=== PATIENT | female | born 1965 | race Caucasian/White ===

== ENCOUNTER 2018-07-16 11:17 | Emergency (ER) | payer MEDICAID, SELFPAY ==
[2018-07-16 11:19] VITALS: BP 155/72; PULSE 61; RESP 18; TEMP 36.6; O2SAT 98; BMI 38.0
--- NOTE | 2018-07-16 11:32 | RAD_ITS ---
STUDY: X-RAY - LEFT KNEE REASON FOR EXAM: Female, 53 years old. Pain following a recent fall TECHNIQUE: 4 view(s) of the knee. COMPARISON: None. FINDINGS: Normal visualized distal femur. Normal visualized proximal tibia and fibula. Normal proximal tibiofibular articulation. Normal medial femorotibial compartment. Normal lateral femorotibial compartment. Normal patellofemoral articulation. The soft tissue structures are unremarkable. RAD/Knee 4 or More Views IMPRESSION: Normal x-ray examination of the knee. Electronically Signed: Mike Peace, at 12:52 EDT , Service support ,
--- NOTE | 2018-07-16 11:32 | ED.VISSUMM ---
- ER Visit Summary Date of Service: 07/16/18 Chief Complaint: Bilateral knee pain History of Present Illness: The patient is a [address] Conley and Dr. Bay. She reports that she was walking through a parking lot last night and tripped over a cement barrier. She injured both knees. She reports that she has left knee pain that is 10 out of 10 with moving from a sitting to a standing position or walking. It is 6 out of 10 at rest. She has right knee pain that is 3 out of 10 at rest and 6 out of 10 with moving from a sitting to standing position. This knee does not hurt worse with walking. She denies any other injuries. No blow to the head or loss of consciousness. She is on any blood thinners. Physical Examination: Vitals: Stable. Afebrile. Neck: No vertebral tenderness. Full ROM without difficulty. Cleared by NEXUS criteria. Back: No vertebral tenderness. General: A&O x 3. NAD. Cardiovascular exam: Regular rate and rhythm, no murmur, rub or gallop. Respiratory exam: Chest nontender. No crepitus. Clear to auscultation bilaterally. No wheezes or stridor. Abdominal exam: Soft, nontender, nondistended, normal bowel sounds. No pain in RUQ or LUQ specifically. No peritoneal signs. Extremity: Full range of motion of both knees with minimal pain. No appreciable joint effusion. She has no pain or ligamentous instability with anterior/posterior drawer or medial/lateral stress bilaterally. Negative Haley on the right. She does have a positive Haley on the left with her foot rotated laterally. She is neurovascular intact distal to this. Test Results: X-ray showed no acute disease. Emergency Department Course and Treatment: Patient refused pain medications. She is resting comfortably. Treatment Plan: I discussed the patient that she may have damaged the meniscus. She will be discharged with instructions Tylenol/ibuprofen for pain. Ice the area. Follow-up Dr. Bay within 3-5 days if not improving. Return to the emergency department for any worsening symptoms. Disposition: To home in improved and stable condition. Impression: 1. Bilateral knee pain, acute. This note was generated with [employer] software. It may contain incorrect words, spelling, and punctuation that were not noted in review of the chart prior to signing ED Disposition - Plan for ED Patient: Instructions: ED Knee Pain [facility] Referrals: Arden Bay MD [STAFF PHYSICIAN] - 3-5 Days
--- NOTE | 2018-07-16 11:53 | RAD_ITS ---
STUDY: X-RAY - RIGHT KNEE REASON FOR EXAM: Female, 53 years old. Bilateral knee pain following a fall. TECHNIQUE: 4 view(s) of the knee. COMPARISON: None. FINDINGS: Normal visualized distal femur. Normal visualized proximal tibia and fibula. Normal proximal tibiofibular articulation. Normal medial femorotibial compartment. Normal lateral femorotibial compartment. Normal patellofemoral articulation. The soft tissue structures are unremarkable. RAD/Knee 4 or More Views IMPRESSION: Normal x-ray examination of the knee. Electronically Signed: Mike Peace, at 12:52 EDT , Service support ,
== END 2018-07-16 12:21 | disposition home or self-care (01) ==
LOC: ED 11:42
PROVIDERS: Emergency Provider Emergency Medicine; Family Provider Family Medicine; PCP Family Medicine
DX: M25.561 Pain in right knee (principal); M25.562 Pain in left knee; Z72.0 Tobacco use
CPT/HCPCS: 73564; 99282

== ENCOUNTER 2018-11-30 07:34 | Observation (INO) | payer SELFPAY ==
[2018-11-30] VITALS (8 sets, daily range): BP systolic 137–155; BP diastolic 65–78; PULSE 56–69; RESP 12–18; TEMP 36.8–36.9; O2SAT 98–100; BMI 35.8; BMI 35.4; BMI 35.5
--- NOTE | 2018-11-30 07:48 | EKG12_ITS ---
Test Reason : CP Blood Pressure : / mmHG Vent. Rate : 068 BPM Atrial Rate : 068 BPM P-R Int : 164 ms QRS Dur : 072 ms QT Int : 386 ms P-R-T Axes : 047 014 048 degrees QTc Int : 410 ms Sinus rhythm with Premature atrial complexes with Aberrant conduction Otherwise normal ECG Confirmed by MONE PROCTOR, GREG ([id number]), fan mail editor JOSE RICH ([id number]) on 12/03/2018 12:00:00 PM Referred By: BB Confirmed By:GREG SHORE MD
--- NOTE | 2018-11-30 07:48 | RAD_ITS ---
STUDY: X-RAY CHEST REASON FOR EXAM: Female, 53 years old. Chest pain. TECHNIQUE: Single AP portable view of the chest. COMPARISON: December 21, 2016. FINDINGS: Cardiac silhouette unremarkable. Pulmonary vascularity unremarkable. Aorta unremarkable. No focal patchy airspace opacities. No pleural effusions. Upper abdomen unremarkable. Osseous structures intact. No pneumothorax. RAD/Chest 1 View (Portable) IMPRESSION: No acute cardiopulmonary findings Electronically Signed: Sanford Hope DO at 8:18 EDT Tel , Service support ,
--- NOTE | 2018-11-30 07:49 | ED.DCSUM_ITS ---
History of Present Illness Chief Complaint: Chest Pain Informant: Patient Onset: Days Context: Sudden Onset Timing: Intermittent Quality: Discomfort Location: Mid to left chest Current Severity: Mild Maximum Severity: Severe Worsened by: Exertion Relieved by: Nothing Associated Symptoms: Awakened from sleep, diaphoresis, shortness of breath, nausea Narrative: Patient is a 53-year-old woman who has smoked since age of 17 presents because she had worsening chest discomfort this morning and did not feel comfortable going to work. She reports Monday morning at 0400 she was awakened from sleep with chest discomfort went through to her back and shortness of breath. This lasted for some time. She was not able to be more specific. She reports over the past 2 days when at work with activity she becomes diaphoretic and at times discomfort in her chest worsens. At times the chest discomfort associated with nausea and dyspnea as well. She denies history of PE or DVT. She denies any risk factors. She denies leg pain, swelling discoloration. She denies history of heartburn, GERD or hiatal hernia. She denies black or maroon stool. She states she has taken a lot of Tylenol with minimal effect. She denies any URI symptoms. She denies prior chest pain. Patient states her 's concern this is related to her vaping. Prior similar symptoms: No Recent Illness/Hospitalization: No - Past Medical History (1) Anxiety disorder Status: Chronic Past Medical History - Allergies and Home Meds Allergies/Adverse Reactions: Allergies carbidopa [From Sinemet] Allergy (Verified 11/30/18 07:35) Swelling levodopa [From Sinemet] Allergy (Verified 11/30/18 07:35) Swelling Primary Care Physician: Delfin Conley MD [Primary Care Provider] - Past Medical History: None Surgical History: noncontributory, - - Patient is a colonoscopy tubal ligation Lives: Spouse/ Significant Other Smoking Status: Current every day smoker Alcohol: None Drugs: - - Old records there is a history of illicit drug use - Family History Paternal Family History: Reports: Heart Disease Review of Systems General: Denies: Chills, Fever, Sweats Eyes: Denies: Visual changes - bilaterally, Blurred Vision - bilaterally, Diplopia ENT: Denies: Rhinorrhea, Sore throat Cardiovascular: Reports: Chest pain Respiratory: Reports: Dyspnea, Dyspnea on exertion, Paroxysmal nocturnal dyspnea Gastrointestinal: Denies: Abdominal pain, Nausea, Vomiting, Diarrhea, Melena, Hematochezia Genitourinary: Denies: Dysuria, Hematuria, Frequency Musculoskeletal: Reports: Back pain - Evening/morning she was awakened from sleep. Denies: Myalgias, Arthralgias, Neck pain, Extremity Pain Skin: Denies: Rash, Wounds Neurological: Denies: Headache, Weakness, Numbness Psych: Reports: Anxiety Hematologic: Denies: Easy bruising, Easy bleeding Allergy: Denies: Uticaria, Swelling of the mouth Physical Exam Vital Signs/Narrative: Vital Signs Temp Pulse Resp BP Pulse Ox 11/30/18 07:35 98.4 F 65 17 138/78 H 98 Inital Vital Signs reviewed: Yes General: Well nourished, Well developed, Obese, No Acute Distress Head: Normocephalic, Atraumatic Eyes: Perrl, EOMI. Negative for: Pale conjunctiva, Scleral icterus ENT: Moist mucous membranes, No rhinorrhea Neck: Supple, Nontender, No lymphadenopathy, No JVD Cardiovascular: Regular rate, Regular rhythm, No murmurs, Normal S1, Normal S2 Respiratory: No distress, CTA bilaterally, Chest nontender Abdomen: Soft, Nontender, Nondistended, Normal bowel sounds Back: Nontender, Normal Inspection Extremities: Nontender, No edema Skin: Normal color, No rash, No Trauma. Negative for: Cyanosis, Diaphoresis, Jaundice Neurological: Alert, Oriented x3, Cranial nerves II-XII grossly intact, Normal Strength, Normal Sensation, Normal DTR, Normal Gait Psychological: Normal affect, Normal Mood Diagnostic/Tx/Re-eval Chest X-Ray - ED: 1 View, Read by ED Physician, Unchanged, Normal, Heart, Mediastinum, Bony Structures, No Acute Disease, Chronic Changes, - - Interpreted at 0759 Impressions Chest X-Ray 11/30/18 07:48 IMPRESSION: No acute cardiopulmonary findings Electronically Signed: Sanford Hope DO at 8:18 EDT Tel , Service support , 11/30/18 07:48 Chest 1 View (Portable) [RAD] Stat Laboratory Results 11/30/18 11/30/18 07:50 07:50 WBC 7.6 RBC 4.61 Hgb 11.2 L Hct 36.1 L MCV 78.3 L MCH 24.3 L MCHC 31.0 L RDW Std Deviation 41.8 RDW Coeff of Arnoldo 14.7 H Plt Count 336 MPV 10.1 Immature Gran % (Auto) 0.300 Neut % (Auto) 67.3 Lymph % (Auto) 24.6 [place] % (Auto) 5.4 Eos % (Auto) 2.0 Baso % (Auto) 0.4 Absolute Neuts (auto) 5.1 Absolute Lymphs (auto) 1.88 Nucleated RBC % 0 Sodium 140 Potassium 3.4 L Chloride 106 Carbon Dioxide 27.0 Anion Gap 7 BUN 10 Creatinine 0.73 Estim Creat Clear Calc 91.97 Est GFR (MDRD) Af Amer 107 Est GFR (MDRD) Non-Af 89 BUN/Creatinine Ratio 13.6 Glucose 119 H Calcium 8.8 Troponin I < 0.015 Laboratory results are remarkable for mild anemia with hemoglobin 11.2. Otherwise laboratory results are unremarkable. - Rhythm Strip Rhythm Strip: Sinus Rhythm Rate: 70 Ectopy: PVC(s) - EKG Initial EKG Interpretation: Sinus Rhythm - Ventricular rate is 68. NV interval is 104 ms. QS duration 72 ms. QT duration 386 ms. [place] is normal. There are premature wide-complex beats noted. These most likely represent a variant atrial complexes. - Medical Decision Making Patient's risk factors for coronary disease or smoking stage XV, borderline hypertension and borderline hypercholesterolemia. With history of awakening from sleep and diaphoresis with exertion and exacerbation of the chest pain with exertion at times need to evaluate for cardiac disease. Also need to consider noncardiac i.e. GI, pulmonary aortic pathology since she initially reported pain going through to her back. To evaluate her presentation EKG, chest x-ray and blood work was obtained. She was treated with 4 baby aspirin and nitroglycerin since she is still having mild discomfort. Patient was reassessed at 0825. Her pain is essentially gone after nitroglycerin. Heart score is 4. She received a point for moderate suspicion, age and 2 points for risk factors. Heart score total is 4. Heart score 4 symptoms are concerning alleviated with nitroglycerin hospitalist was paged for further testing. ED Disposition - Plan for ED Patient: Disposition: Acute Care Hospital [facility] Diagnosis: Chest discomfort Referrals: Delfin Conley MD [Primary Care Provider] -
[2018-11-30] MEDS: Aspirin 81 MG TAB.CHEW 324 MG PO (07:56)
[2018-11-30] MEDS: Nitroglycerin SL (ED/IMG/CATH) 0.4 MG TABLET SUBLINGUAL ×2 (07:58→08:03)
[2018-11-30 08:03] LABS: Absolute Lymphocyte Count 1.88 X10^3/uL (0.83-4.51); Absolute Neutrophil Count 5.1 X10^3/uL (2.0-7.7); Basophil# 0.03 X10^3/uL; Basophil% 0.4 % (0-1); Eosinophil# 0.15 X10^3/uL; Hematocrit 36.1 % (37-47); Hemoglobin 11.2 g/dL (12.0-15.0); Lymphocyte # 1.88 X10^3/ul (4.0); Lymphocyte % 24.6 % (19-41); Mean Corpuscular Hgb 24.3 pg (27.0-32.0); Mean Corpuscular Volume 78.3 fL (81-99); Mean Platelet Vol. 10.1 fl (6.2-12.0); Monocyte# 0.41 X10^3/uL; Monocyte% 5.4 % (0-10); NRBC Flagged by Analyzer 0 % (0-5); Neutrophil # 5.14 X10^3/uL (2.7-7.7); Neutrophil % 67.3 % (47-70); POSITIVE MORPHOLOGY YES; Platelet Count 336 K/mm3 (150-450); RBC Distribution Width CV 14.7 % (11.6-14.6); RBC Distribution Width SD 41.8 fl (35.1-43.9); Red Blood Count 4.61 M/mm3 (4.2-5.4); White Blood Count 7.6 K/mm3 (4.4-11.0)
[2018-11-30 08:05] LABS: Differential Indicated SCAN CRITERIA MET
[2018-11-30 08:14] LABS: Anion Gap 7 (5-15); BUN 10 mg/dL (7-18); BUN/Creat Ratio 13.6 RATIO (10-20); Calcium,Total 8.8 mg/dL (8.5-10.1); Chloride 106 mmol/L (98-107); Creatinine, Serum 0.73 mg/dL (0.55-1.02); EST Glomerular Filtration Rate 89 mL/min (>60); Est Glom Filt Rate - Afr Amer 107 mL/min (>60); Estimated Creatinine Clearance 91.97 ml/min; Glucose 119 mg/dL (74-106); Potassium 3.4 mmol/L (3.5-5.1); Sodium Level 140 mmol/L (136-145)
--- NOTE | 2018-11-30 09:25 | EKG12_ITS ---
Test Reason : Blood Pressure : / mmHG Vent. Rate : 053 BPM Atrial Rate : 053 BPM P-R Int : 186 ms QRS Dur : 086 ms QT Int : 434 ms P-R-T Axes : 052 019 049 degrees QTc Int : 407 ms Sinus bradycardia Otherwise normal ECG Confirmed by ROBERTO PROCTOR, BRAD ([id number]), assignment desk editor ADRIANNA ROMAN ([id number]) on 12/07/2018 8:20:13 AM Referred By: PRIMO Confirmed By:BRAD MEJIA MD
--- NOTE | 2018-11-30 10:29 | PCM.HP.STD ---
Problem List (1) Chest discomfort Status: Acute History of Present Illness Date of Admission: 11/30/18 Chief Complaint: Chest pain The patient is a 53 year old F with no significant past medical history presents with chest pain. She states that it started on Monday or Monday of this week and initially started in her back and she thought that it was a muscle spasm. She took some Flexeril which did not help, and the pain moved into the front. Initially lasted for about an hour and then resolved. She has noticed that over the last 2 days her pain would become more intense with exercise and be relieved with rest. She denies any cough or pleuritic type chest pain. Her pain is situated over the left side of her chest. She denies any lightheadedness or dizziness. No shortness of breath. In the ER and initial troponin was negative and the EKG was unremarkable. In the ER her chest pain did essentially resolved with nitroglycerin. Past Medical History Past Medical History (Chronic Problems): Chronic Problems Drug abuse (Chronic) Anxiety disorder (Chronic) Allergies carbidopa [From Sinemet] Allergy (Verified 11/30/18 07:35) Swelling levodopa [From Sinemet] Allergy (Verified 11/30/18 07:35) Swelling Home Medications: Ambulatory Orders Medication Instructions Recorded NK 11/30/18 Surgical History: noncontributory, - - Patient is a colonoscopy tubal ligation Psychiatric History: Anxiety [employer] History: No pertinent [employer] history Lives: Spouse/ Significant Other Smoking Status: Current every day smoker Tobacco Use: Cigarettes, Vapor Alcohol: None Drugs: - - Old records there is a history of illicit drug use - *Family History Paternal History Items: Heart Disease, Stroke Maternal History Items: Heart Disease, Stroke Sibling History Items: Heart Disease Review of Systems Constitutional: Denies: Chills, Fever, Weight Change HEENT: Denies: Head Aches, Sinus Congestion, Sinus Drainage Cardiovascular: Reports: Chest Pain. Denies: Palpitations Respiratory: Denies: Cough, Hemoptysis, Pleuritic Pain, Shortness of Breath, Shortness of breath at rest, Shortness of breath upon exertion, Sputum production Gastrointestinal: Denies: Abdominal Pain, Nausea, Vomiting Genitourinary: Denies: Dysuria Musculoskeletal: Denies: Joint Pain, Joint Tenderness Skin: Denies: Rash, Wounds Neurological: Denies: Numbness, Tingling, Focal weakness Psychiatric: Denies: Anxiety, Depression Hematologic/ Lymphatic: Denies: Easy Bruising, Easy Bleeding VTE Information - Inpt Only VTE Present on Admission: No Patient Problems: Active and Suspected Problems Chest discomfort (Acute) - Physical Exam General: Alert, Oriented x3, Cooperative, No apparent distress HEENT: Atraumatic, PERRLA, EOMI, Normocephalic Oral: Moist Mucosa Neck: Supple, No JVD Lungs: Clear to auscultation, Normal air movement, No rhonchi, No wheeze, No rales Cardiovascular: Regular rate, Regular Rhythm, Normal S1, Normal S2, No murmurs Abdomen: Soft, Non Tender, Non-Distended, No Hepato-splenomegaly Extremities: No edema, Capillary Refill Less than 3 Seconds Skin: No rashes, No breakdown Neurological: Neuro grossly intact, Sensory exam intact to light touch and pain Psych/Mental Status: Normal Affect, Appropriate Vital Signs Temp Pulse Resp BP Pulse Ox 98.2 F 60 18 155/65 H 100 11/30/18 09:38 11/30/18 09:39 11/30/18 09:38 11/30/18 09:38 11/30/18 09:38 Oxygen Flow Rate (L/min) 2 Oxygen Delivery Method Room Air Weight: 233 lb 3.985 oz Body Mass Index (BMI) 35.4 Laboratory Tests Past 24 Hrs 11/30/18 11/30/18 07:50 07:50 WBC 7.6 RBC 4.61 Hgb 11.2 L Hct 36.1 L MCV 78.3 L MCH 24.3 L MCHC 31.0 L RDW Std Deviation 41.8 RDW Coeff of Arnoldo 14.7 H Plt Count 336 MPV 10.1 Immature Gran % (Auto) 0.300 Neut % (Auto) 67.3 Lymph % (Auto) 24.6 [place] % (Auto) 5.4 Eos % (Auto) 2.0 Baso % (Auto) 0.4 Absolute Neuts (auto) 5.1 Absolute Lymphs (auto) 1.88 Nucleated RBC % 0 Sodium 140 Potassium 3.4 L Chloride 106 Carbon Dioxide 27.0 Anion Gap 7 BUN 10 Creatinine 0.73 Estim Creat Clear Calc 91.97 Est GFR (MDRD) Af Amer 107 Est GFR (MDRD) Non-Af 89 BUN/Creatinine Ratio 13.6 Glucose 119 H Calcium 8.8 Troponin I < 0.015 Assessment/Plan All Active Problems Chest discomfort (Acute) Arm contusion (Acute) 1. Chest pain/obesity/tobacco abuse -She is obese with a BMI of 35 and a smoker as well as a significant family history. -Initial troponin was negative will obtain troponin series -Proceed with a nuclear exercise stress today if possible otherwise tomorrow -We will obtain lipid panel and A1c as she states that she is inconsistent in following up with her doctor. -She states that she was recently checked for hypertension and was told that she did not have an issue with her and therefore was not started on any medications by her PCP -Discussed what lifestyle modifications including including strategies for weight loss -Advised cessation of tobacco products and vaping DVT: Lovenox Code Visit OBSV E&M: 21661 Initial observation care L2
[2018-11-30 11:03] LABS: Cholesterol 173 mg/dL (200); High Density Lipoprotein 52 mg/dL; Triglycerides 133 mg/dL; Very Low Density Lipoprotein 27 mg/dL (5-40)
[2018-11-30 11:05] LABS: Hemoglobin A1c 5.6 % (4.2-6.3)
--- NOTE | 2018-11-30 12:54 | CASEMGMT ---
Social Work Met with pt in room to discuss insurance as pt is listed as self pay. Pt stating that she previously had [facility] Medicaid and does work around 35 hours a week. Pt recently has had a lot of overtime at work and therefore no longer qualified for medicaid and lost insurance. Pt currently back down to 35 hours a week and has reapplied for [facility] Medicaid last week and expects to get insurance again. Pt stating she will be able to afford medications and follow up appointments until insurance starts again. Pt expressing no financial needs. EMILE Donnelly
--- NOTE | 2018-11-30 14:08 | STRESSREP_ITS ---
Stress Test Report Exercise myocardial perfusion stress test. 53-year-old lady with a history of chest pain. Stress protocol: Resting EKG demonstrates normal sinus rhythm with a rate of 61 bpm normal intervals are noted resting blood pressure 160/88 mmHg. The patient exercised according to regular Cody protocol for a total duration of 3 minutes and 20 s econds. The maximum heart rate attained was 166 bpm which was 98% of maximum predicted heart rate the maximum workload was 4.9 metabolic equivalents. At rest there were no ST or T wave changes noted suggest ischemia occasional premature ventricular complexes were noted at peak exercise upsloping ST changes only were noted with no meet the criteria for ischemia. The resting blood pressures 160/88 with a peak blood pressure of 204/60 mmHg. The test was terminated due to shortness of breath. Myocardial perfusion protocol. 14.6 mCi of technetium 99m sestamibi was injected at rest. The patient exercised according to regular Cody protocol for 3 minutes and 20 seconds at peak exercise 44.7 mCi of technetium 99m sestamibi was injected stress images were obtained stress and rest images were reconstructed in comparing the short axis vertical long horizontal on the gated images were also obtained for next Perfusion SPECT analysis: Review of the stress images demonstrate normal uptake of tracer noted in all areas of the myocardium. The resting images similarly demonstrate normal uptake of tracer noted in all rest myocardium. No areas of reversibility are noted suggest ischemia no previous infarct is noted. Gated SPECT analysis: The gated ejection fraction is noted to be 72%. Conclusion: Normal exercise myocardial perfusion stress test at a low workload. The low workload may affect sensitivity for detection of ischemia. No obvious ischemia noted. Shortness of breath present.
--- NOTE | 2018-11-30 14:48 | CT_ITS ---
STUDY: CTA CHEST REASON FOR EXAM: Female, 53 years old. SOB RADIATION DOSAGE (If Supplied By Facility): CTDIvol = ( 14.75 ) mGy, DLP = ( 516.97 ) mGycm TECHNIQUE: The examination was performed with the intravenous administration of 100cc IV Isovue 370. Post-processing of the angiographic images was performed, with multiplanar reformation and 3D reconstruction. Individualized dose optimization techniques were used for this CT. COMPARISON: None. FINDINGS: The contrast bolus is suboptimal for detecting small or distal pulmonary emboli. No large or central pulmonary emboli are seen. . Normal thoracic aorta and visualized great vessels. There is no demonstrated aortic dissection. Normal heart and pericardium. Normal mediastinum. Normal hilar regions. Normal visualized trachea and bronchi. The lungs are well expanded. Normal pulmonary parenchyma. Normal pleura. Normal chest wall structures. Normal osseous structures. Normal visualized upper abdomen. CT/CTA Chest W/WO Contrast IMPRESSION: The contrast bolus is suboptimal for detecting small or distal pulmonary emboli. No large or central pulmonary emboli are seen. No acute pulmonary findings. Electronically Signed: Delfin Zapata MD at 16:09 EDT Tel , Service support ,
--- NOTE | 2018-11-30 16:26 | DCINST_ITS ---
- Discharge Diagnoses Current Active Problems: Current Active and Chronic Problems Chest discomfort (Acute) You will use the following diet at home:: Calorie/Carbohydrate Controlled (specify 1200, 1400, etc) - 1400 Your food should be the consistency of: Regular Your liquids should be the consistency of: Regular/Thin Discharge Activity: Return to Normal Activity Call your doctor if you observe: Fever of 101 or Higher, Shortness of breath, Dizziness, Fainting spells, Swelling in the ankles, Chest pain, Increased palpitations (irregular heartbeat) Allergies/Adverse Reactions: Allergies carbidopa [From Sinemet] Allergy (Verified 11/30/18 07:35) Swelling levodopa [From Sinemet] Allergy (Verified 11/30/18 07:35) Swelling Medications to take at Discharge NK 11/30/18 Primary Care Physician: Delfin Conley MD [Primary Care Provider] - Please follow up with your Primary Care Physician in: 3-5 days Test Results: Test results from this visit will be discussed in further detail at your follow- up appointment, if applicable.
--- NOTE | 2018-11-30 16:28 | PCM.DC.SUM ---
Discharge Date and Diagnosis - Problem List Patient Problems: Active and Suspected Problems Chest discomfort (Acute) Date of Admission: 11/30/18 Date of Discharge: 11/30/18 - Primary Discharge Diagnosis Active and Suspected Problems Chest discomfort (Acute) - Secondary Discharge Diagnosis Chronic Problems Drug abuse (Chronic) Anxiety disorder (Chronic) Hospital Course and Treatment Imaging Results: CXR: IMPRESSION: No acute cardiopulmonary findings Stress Test: Exercise myocardial perfusion stress test. 53-year-old lady with a history of chest pain. Stress protocol: Resting EKG demonstrates normal sinus rhythm with a rate of 61 bpm normal intervals are noted resting blood pressure 160/88 mmHg. The patient exercised according to regular Cody protocol for a total duration of 3 minutes and 20 seconds. The maximum heart rate attained was 166 bpm which was 98% of maximum predicted heart rate the maximum workload was 4.9 metabolic equivalents. At rest there were no ST or T wave changes noted suggest ischemia occasional premature ventricular complexes were noted at peak exercise upsloping ST changes only were noted with no meet the criteria for ischemia. The resting blood pressures 160/88 with a peak blood pressure of 204/60 mmHg. The test was terminated due to shortness of breath. Myocardial perfusion protocol. 14.6 mCi of technetium 99m sestamibi was injected at rest. The patient exercised according to regular Cody protocol for 3 minutes and 20 seconds at peak exercise 44.7 mCi of technetium 99m sestamibi was injected stress images were obtained stress and rest images were reconstructed in comparing the short axis vertical long horizontal on the gated images were also obtained for next Perfusion SPECT analysis: Review of the stress images demonstrate normal uptake of tracer noted in all areas of the myocardium. The resting images similarly demonstrate normal uptake of tracer noted in all rest myocardium. No areas of reversibility are noted suggest ischemia no previous infarct is noted. Gated SPECT analysis: The gated ejection fraction is noted to be 72%. Conclusion: Normal exercise myocardial perfusion stress test at a low workload. The low workload may affect sensitivity for detection of ischemia. No obvious ischemia noted. Shortness of breath present. CTA Chest: IMPRESSION: The contrast bolus is suboptimal for detecting small or distal pulmonary emboli. No large or central pulmonary emboli are seen. No acute pulmonary findings. Consults: None Operations: None Procedures: Nuclear stress test Summary of Care Provided: Per HPI: The patient is a 53 year old F with no significant past medical history presents with chest pain. She states that it started on Monday or Monday of this week and initially started in her back and she thought that it was a muscle spasm. She took some Flexeril which did not help, and the pain moved into the front. Initially lasted for about an hour and then resolved. She has noticed that over the last 2 days her pain would become more intense with exercise and be relieved with rest. She denies any cough or pleuritic type chest pain. Her pain is situated over the left side of her chest. She denies any lightheadedness or dizziness. No shortness of breath. In the ER and initial troponin was negative and the EKG was unremarkable. In the ER her chest pain did essentially resolved with nitroglycerin. Hospital Course: 1. Chest pain/obesity/tobacco [id number]-32-cotn-old female presented to the hospital with chest pain for the last several days. She states it started in her back and radiated to her front. Initially she thought it might of been a muscle spasm she took a half of her 's Flexeril. That did not help. Today she had an EKG in the ER which was unremarkable and had 3 normal troponins. She was admitted for a stress test which was done and normal however even though she reached 98% of her maximum heart rate, it was at a low workload which does affect sensitivity and specificity of the test. However she is stating that her chest pain has resolved though she was having shortness of breath during the test. Because of his continued shortness of breath a CTA of the chest was obtained to rule out a PE, she was a very low pretest probability and CTA of the chest was negative for PE. Also, screening labs were obtained as she is inconsistent with seeing her primary care physician, her A1c was 5.6 and her lipid panel was normal. I did discuss with her the necessity of lifestyle modification as well as tobacco cessation. She expressed understanding. I discussed with her the risks and benefits of going home and she would like to go home so she does not want to miss work tomorrow. She understands she should come back if she has worsening chest pain or shortness of breath. Patient Problems: Active and Suspected Problems Chest discomfort (Acute) - Physical Exam Vital Signs Temp Pulse Resp BP Pulse Ox 98.5 F 69 18 137/66 H 99 11/30/18 15:53 11/30/18 15:53 11/30/18 15:53 11/30/18 15:53 11/30/18 15:53 Oxygen Flow Rate (L/min) 2 Oxygen Delivery Method Room Air Weight: 233 lb 3.985 oz Body Mass Index (BMI) 35.4 Laboratory Tests Past 24 Hrs 11/30/18 11/30/18 11/30/18 07:50 07:50 07:50 WBC 7.6 RBC 4.61 Hgb 11.2 L Hct 36.1 L MCV 78.3 L MCH 24.3 L MCHC 31.0 L RDW Std Deviation 41.8 RDW Coeff of Arnoldo 14.7 H Plt Count 336 MPV 10.1 Immature Gran % (Auto) 0.300 Neut % (Auto) 67.3 Lymph % (Auto) 24.6 [place] % (Auto) 5.4 Eos % (Auto) 2.0 Baso % (Auto) 0.4 Absolute Neuts (auto) 5.1 Absolute Lymphs (auto) 1.88 Nucleated RBC % 0 Sodium 140 Potassium 3.4 L Chloride 106 Carbon Dioxide 27.0 Anion Gap 7 BUN 10 Creatinine 0.73 Estim Creat Clear Calc 91.97 Est GFR (MDRD) Af Amer 107 Est GFR (MDRD) Non-Af 89 BUN/Creatinine Ratio 13.6 Glucose 119 H Hemoglobin A1c Calcium 8.8 Troponin I < 0.015 Triglycerides 133 Cholesterol 173 LDL Cholesterol 94 VLDL Cholesterol 27 HDL Cholesterol 52 11/30/18 11/30/18 11/30/18 07:50 10:50 14:15 WBC RBC Hgb Hct MCV MCH MCHC RDW Std Deviation RDW Coeff of Arnoldo Plt Count MPV Immature Gran % (Auto) Neut % (Auto) Lymph % (Auto) [place] % (Auto) Eos % (Auto) Baso % (Auto) Absolute Neuts (auto) Absolute Lymphs (auto) Nucleated RBC % Sodium Potassium Chloride Carbon Dioxide Anion Gap BUN Creatinine Estim Creat Clear Calc Est GFR (MDRD) Af Amer Est GFR (MDRD) Non-Af BUN/Creatinine Ratio Glucose Hemoglobin A1c 5.6 Calcium Troponin I < 0.015 < 0.015 Triglycerides Cholesterol LDL Cholesterol VLDL Cholesterol HDL Cholesterol Discharge Activity: Return to Normal Activity Call your doctor if you observe: Fever of 101 or Higher, Shortness of breath, Dizziness, Fainting spells, Swelling in the ankles, Chest pain, Increased palpitations (irregular heartbeat) Home Medications: Medications to take at Discharge NK 11/30/18 Primary Care Physician: Delfin Conley MD [Primary Care Provider] - Please follow up with your Primary Care Physician in: 3-5 days Disposition: Home Minutes spent on discharge:: 35 Patient Condition:: Stable Medical Necessity - Tobacco Use Smoking Status: Current every day smoker Tobacco Use: Cigarettes, Vapor Meaningful Use Info Meaningful Use Diagnoses (Choose all that apply): None applicable Code Visit OBSV E&M: 30523 Observ/hosp same date L2
== END 2018-11-30 16:49 | disposition home or self-care (01) ==
LOC: ED 08:27 → PCU 08:52
PROVIDERS: Admitting Provider Family Medicine; Emergency Provider Emergency Medicine; Family Provider Family Medicine; PCP Family Medicine; Visit Provider Family Medicine
DX: R07.89 Other chest pain (principal); R06.02 Shortness of breath; R03.0 Elevated blood-pressure reading, without diagnosis of hypertension; F17.210 Nicotine dependence, cigarettes, uncomplicated; F17.290 Nicotine dependence, other tobacco product, uncomplicated; E66.9 Obesity, unspecified; Z68.35 Body mass index [BMI] 35.0-35.9, adult; Z71.3 Dietary counseling and surveillance
CPT/HCPCS: 36415; 71045; 71275; 78452; 80048; 80061; 83036; 84484; 85025; 93005; 93017; 99218; 99285; 99406; A9500; Q9967; A4216; G0378

== ENCOUNTER 2019-06-07 08:06 | Emergency (ER) | payer OTHER, SELFPAY ==
[2018-11-30 09:21] VITALS: BMI 35.4
[2019-06-07 08:07] VITALS: BP 153/79; PULSE 73; RESP 17; TEMP 37.5; O2SAT 100; BMI 34.0
--- NOTE | 2019-06-07 08:18 | ED.DCSUM_ITS ---
History of Present Illness Chief Complaint: Cough Detail of Chief Complaint: Cough, fever Informant: Patient Onset: Weeks Context: Gradual Onset Timing: Waxes and wanes Current Severity: Moderate Maximum Severity: Moderate Narrative: Patient presents with 3 weeks of fever and cough. 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 Symptoms initially improved but have worsened again recently. She complains of cough with intermittent wheezing. She reports low-grade fevers. She was seen at urgent care 2 days ago and started on steroids along with Ceftin ear. Patient reports no improvement. She also raises concern about difficulty with urination. She states that she has problems with urinary continence at baseline. For the past 2 days she is only passed urine when she coughs. She does not feel that her bladder is full and she is unable to urinate however. - Past Medical History (1) Anxiety disorder Status: Chronic Past Medical History - Allergies and Home Meds Allergies/Adverse Reactions: Allergies carbidopa [From Sinemet] Allergy (Verified 06/07/19 08:07) Swelling levodopa [From Sinemet] Allergy (Verified 06/07/19 08:07) Swelling Primary Care Physician: Care Physician,No Primary [Primary Care Provider] - Prior records reviewed: Yes Surgical History: noncontributory, - - Patient is a colonoscopy tubal ligation Lives: Spouse/ Significant Other Smoking Status: Current every day smoker - Family History Maternal Family History: Reports: Heart Disease, Stroke Sibling Family History: Reports: Heart Disease Paternal Family History: Reports: Heart Disease, Stroke Review of Systems General: Reports: Fever Eyes: Denies: Visual changes - bilaterally ENT: Denies: Bilateral ear pain Cardiovascular: Reports: Palpitations. Denies: Chest pain Respiratory: Reports: Dyspnea, Cough Gastrointestinal: Denies: Abdominal pain, Nausea, Vomiting, Diarrhea Genitourinary: Denies: Dysuria Musculoskeletal: Denies: Swelling, Extremity Pain Skin: Denies: Rash Neurological: Denies: Headache Hematologic: Denies: Easy bruising, Easy bleeding Allergy: Denies: Uticaria Physical Exam Vital Signs/Narrative: Vital Signs Temp Pulse Resp BP Pulse Ox 06/07/19 08:07 99.5 F H 73 17 153/79 H 100 Inital Vital Signs reviewed: Yes General: Well nourished, Well developed Head: Normocephalic ENT: Moist mucous membranes Neck: Supple Cardiovascular: Regular rate, Regular rhythm Respiratory: No distress, CTA bilaterally Abdomen: Soft, Nontender Back: - - Mild tenderness in the bilateral lower lumbar paraspinal muscles. Extremities: Nontender Skin: Normal color, No rash Neurological: Alert, Oriented x3 Psychological: Normal affect Diagnostic/Tx/Re-eval Impressions Chest X-Ray 06/07/19 09:09 IMPRESSION: Normal PA and lateral chest Electronically Signed: Myke Hayes, at 9:23 EST Tel , Service support , 06/07/19 09:09 Chest PA and Lateral [RAD] Stat Laboratory Results 06/07/19 06/07/19 06/07/19 08:35 08:35 11:03 WBC 9.7 RBC 4.76 Hgb 11.6 L Hct 36.8 L MCV 77.3 L MCH 24.4 L MCHC 31.5 L RDW Std Deviation 44.1 H RDW Coeff of Arnoldo 15.8 H Plt Count 355 MPV 9.6 Immature Gran % (Auto) 0.200 Neut % (Auto) 66.7 Lymph % (Auto) 25.9 [place] % (Auto) 6.5 Eos % (Auto) 0.4 Baso % (Auto) 0.3 Absolute Neuts (auto) 6.5 Absolute Lymphs (auto) 2.52 Nucleated RBC % 0 Sodium 141 Potassium 3.0 L Chloride 109 H Carbon Dioxide 25.0 Anion Gap 7 BUN 11 Creatinine 0.77 Estim Creat Clear Calc 87.19 Est GFR (MDRD) Af Amer 101 Est GFR (MDRD) Non-Af 84 BUN/Creatinine Ratio 14.3 Glucose 98 Calcium 8.9 Urine Color Yellow Urine Clarity Clear Urine pH 6.0 Ur Specific [place] 1.015 Urine Protein Negative Urine Glucose (UA) Normal Urine Ketones Negative Urine Occult Blood 10 H Urine Nitrite Negative Urine Bilirubin Negative Urine Urobilinogen Normal Ur Leukocyte Esterase Negative Urine RBC 0 SEEN Urine WBC 0 SEEN Ur Squamous Epith Cells 5-10 SEEN Urine Bacteria RARE Urine Mucus 2+ - Medical Decision Making Patient was given fluids and ibuprofen here. She was given a DuoNeb treatment and does feel improved following this. On repeat evaluation she is resting comfortably. She was given oral potassium replacement. I discussed with the patient I believe her symptoms are viral in nature. She is already on an antibiotic and can continue this since she already started it. She will be given an albuterol inhaler for home. ED Disposition - Plan for ED Patient: Disposition: Home or Assisted Living Diagnosis: Bronchitis Instructions: BRONCHITIS with Wheezing (Adult) Prescriptions: Albuterol Inhaler [Ventolin Hfa] 1 - 2 puff INHALATION Q4H PRN PRN #1 inhaler PRN Reason: Wheezing Transmission Status: Pending to [id number] - [place] Referrals: Jayro Moraes III, MD [STAFF PHYSICIAN] - 1-2 Weeks
[2019-06-07] MEDS: 0.9% Normal Saline 1,000 ML 150 ML IV (08:33)
[2019-06-07] MEDS: Ibuprofen 600 MG Tablet PO (08:43)
[2019-06-07 08:44] LABS: Absolute Lymphocyte Count 2.52 X10^3/uL (0.83-4.51); Absolute Neutrophil Count 6.5 X10^3/uL (2.0-7.7); Basophil# 0.03 X10^3/uL; Basophil% 0.3 % (0-1); Eosinophil# 0.04 X10^3/uL; Eosinophils% 0.4 % (0-5); Hematocrit 36.8 % (37-47); Hemoglobin 11.6 g/dL (12.0-15.0); Lymphocyte # 2.52 X10^3/ul (4.0); Lymphocyte % 25.9 % (19-41); Mean Corp Hgb Conc 31.5 g/dL (32-36); Mean Corpuscular Hgb 24.4 pg (27.0-32.0); Mean Corpuscular Volume 77.3 fL (81-99); Mean Platelet Vol. 9.6 fl (6.2-12.0); Monocyte# 0.63 X10^3/uL; Monocyte% 6.5 % (0-10); NRBC Flagged by Analyzer 0 % (0-5); Neutrophil # 6.48 X10^3/uL (2.7-7.7); Neutrophil % 66.7 % (47-70); Platelet Count 355 K/mm3 (150-450); RBC Distribution Width CV 15.8 % (11.6-14.6); RBC Distribution Width SD 44.1 fl (35.1-43.9); Red Blood Count 4.76 M/mm3 (4.2-5.4); White Blood Count 9.7 K/mm3 (4.4-11.0)
[2019-06-07 08:47] VITALS: BP 144/63; PULSE 68; RESP 14; O2SAT 100
[2019-06-07 09:07] LABS: Anion Gap 7 (5-15); BUN 11 mg/dL (7-18); BUN/Creat Ratio 14.3 RATIO (10-20); Calcium,Total 8.9 mg/dL (8.5-10.1); Chloride 109 mmol/L (98-107); Creatinine, Serum 0.77 mg/dL (0.55-1.02); EST Glomerular Filtration Rate 84 mL/min (>60); Est Glom Filt Rate - Afr Amer 101 mL/min (>60); Estimated Creatinine Clearance 87.19 ml/min; Glucose 98 mg/dL (74-106); Sodium Level 141 mmol/L (136-145)
--- NOTE | 2019-06-07 09:09 | RAD_ITS ---
EXAM DESCRIPTION: PA and lateral chest CLINICAL HISTORY: 53 years Female, cough, SOB, chest pains, and off and on fever for approx 3 weeks cough, SOB, chest pains, and off and on fever for approx 3 weeks COMPARISON: Previous is obtained on 11/30/2018 FINDINGS: The thorax is intact. The heart and mediastinum appear to be within normal limits. The lungs appear to be well areated without evidence of pneumonic consolidation or pleural effusion. RAD/Chest PA and Lateral IMPRESSION: Normal PA and lateral chest Electronically Signed: Myke Hayes, at 9:23 EST Tel , Service support ,
[2019-06-07 09:40] VITALS: PULSE 76; RESP 18
[2019-06-07] MEDS: Ipratropium/Albuterol Sulfate 3 ML AMPUL.NEB INHALATION (09:44)
--- NOTE | 2019-06-07 10:34 | ED.RN ---
pt unable to provide U/A at this time, pt does NOT want to be straight cathed. aware.
[2019-06-07 10:35] VITALS: BP 133/56; PULSE 66; RESP 13; O2SAT 100
[2019-06-07 11:10] LABS: Red Blood Cells-Urine 0 SEEN /hpf (0-5); White Blood Cells 0 SEEN /hpf (0-5)
[2019-06-07 11:14] LABS: Color, Urine Yellow (Yellow); Glucose, Dipstick Normal (Normal); Ketone-Dipstick Negative (Negative); Leukocyte Esterase-Dipstick Negative /ul (Negative); Nitrite-Dipstick Negative (Negative); Occult Blood-Urine 10 /ul (Negative); Protein-Dipstick Negative (Negative); Specific Gravity, Urine 1.015 (1.002-1.030); Urine Bilirubin Dipstick Negative (Negative); Urine Clarity Clear (Clear); Urine Urobilinogen Normal (Normal)
[2019-06-07 11:28] LABS: Bacteria RARE /hpf (None Seen); Mucous, Urine 2+ /hpf (<or=2+); Squamous Epithelial Cells - UA 5-10 SEEN /hpf (5-10)
[2019-06-07 11:46] VITALS: BP 134/76; PULSE 81; RESP 16; O2SAT 99
== END 2019-06-07 11:48 | disposition home or self-care (01) ==
PROVIDERS: Emergency Provider Emergency Medicine
DX: J40 Bronchitis, not specified as acute or chronic (principal); Z72.0 Tobacco use
CPT/HCPCS: 71046; 80048; 81001; 85025; 94640; 96360; 96361; 99285; J7030

== ENCOUNTER 2021-05-17 17:02 | Emergency (ER) | payer SELFPAY ==
[2021-05-17 17:03] VITALS: BP 196/89; PULSE 89; RESP 18; TEMP 36.6; O2SAT 98; BMI 32.6
[2021-05-17 17:59] VITALS: BP 167/89; PULSE 86; RESP 13; O2SAT 99
[2021-05-17 18:03] VITALS: BP 176/87; PULSE 85; RESP 18; O2SAT 98
--- NOTE | 2021-05-17 18:31 | EKG12_ITS ---
Test Reason : CP Blood Pressure : / mmHG Vent. Rate : 083 BPM Atrial Rate : 083 BPM P-R Int : 186 ms QRS Dur : 082 ms QT Int : 376 ms P-R-T Axes : 079 026 064 degrees QTc Int : 441 ms Normal sinus rhythm Normal ECG Confirmed by ROBERTO PROCTOR, BRAD ([id number]), film and video editor JOSE RICH ([id number]) on 05/18/2021 11:40:52 AM Referred By: CINDY/NAE Confirmed By:BRAD MEJIA MD
--- NOTE | 2021-05-17 18:31 | EX.ED.DYSGE1 ---
HPI History of Present Illness Chief Complaint: Chest Pain Informant: patient Narrative Narrative: 55-year-old female states that just prior to arrival in the emergency department she was getting out of the vehicle she began to get discomfort across her upper back. She states that she began to feel lightheaded like she may pass out so she laid down. States she started feeling tingling around her mouth and her fingertips. States that she felt that perhaps the back pain was coming around towards her front to into her chest. She states she did have some vomiting. She notes that when she got here her blood pressure was elevated but she is slowly started to feel better. She states its been years since she has had a panic attack but felt that this felt part of it. PFSH PFSH Allergy/AdvReac Type Severity Reaction Status Date / Time cinnamon Allergy Anaphylaxis Verified 05/17/21 18:04 Social History (Updated 05/17/21 @ 18:[address] Hima West, DO) Smoking Status: Current every day smoker tobacco type: cigarettes and e-cigarettes substance use type: marijuana ROS ROS ED Constitutional Constitutional ED: Denies chills, fever(s) or weight loss Eyes Eyes: Denies change in vision or diplopia ENT ENT ED: Denies ear pain, rhinorrhea or sore throat Cardiovascular Cardiovascular: Reports chest pain; Denies orthopnea, palpitations or racing heartbeat Respiratory/Chest Respiratory/Chest: Denies cough, dyspnea or orthopnea Gastrointestinal Gastrointestinal: Reports nausea and vomiting; Denies abdominal pain or diarrhea Genitourinary Genitourinary ED: Denies dysuria, hematuria or urinary frequency Musculoskeletal Musculoskeletal: Reports back pain; Denies arthralgias or myalgias Integumentary Denies abscess or rash Neurologic Neurologic: Reports paresthesias; Denies headache(s) or weakness Psychiatric Psychiatric: Denies anxiety, depression, suicidal ideation or suicidal thoughts Endocrine Endocrinology: Denies polydipsia, polyphagia or polyuria Allergic/Immunologic Allergic/Immunologic ED: Denies mouth swelling, tongue swelling or urticaria EXAM Physical Exam Const Vital Signs: 05/17/21 17:03 05/17/21 17:59 05/17/21 18:00 Temperature 97.8 F Temperature Source Temporal Pulse Rate 89 86 Respiratory Rate 18 13 Respiratory Effort Normal Blood Pressure 196/89 H 167/89 H Blood Pressure Mean 124 115 Pulse Ox 98 99 Oxygen Delivery Method Room Air 05/17/21 18:03 05/17/21 19:28 05/17/21 20:18 Temperature Temperature Source Pulse Rate 85 72 69 Respiratory Rate 18 17 16 Respiratory Effort Blood Pressure 176/87 H 142/81 H 135/73 H Blood Pressure Mean 116 101 93 Pulse Ox 98 97 99 Oxygen Delivery Method Room Air Room Air Positive well nourished and well developed General Appearance ED: well developed HEENT Reports normocephalic, head/scalp atraumatic and moist mucous membranes Eyes PERRL and EOMs intact bilaterally Neck no lymphadenopathy, supple and no JVD Resp normal respiratory effort and clear to auscultation bilaterally Cardio regular rate, regular rhythm and no murmurs GI normal to inspection, nondistended, normoactive bowel sounds and non-tender Palpation: soft Back/Spine no CVA tenderness and normal ROM Extremity normal to inspection General Extremety ED: Negative for edema General Extremity: Negative for edema Neuro oriented x3 and CN's II-XII intact bilaterally Sensorium / Orientation: alert Motor Exam: strength 5/5 throughout Psych mental status grossly normal Mood & Affect: Negative for depressed or tearful Skin no rashes or lesions noted and no wounds MDM MDM MDM Narrative Medical decision making narrative: Patient's troponin is 20 D-dimer 0.43. CBC is normal BMP shows a glucose 114. This is a very atypical story. I do not think this representing dissection ACS PE or other intrathoracic emergency. Patient to be discharged home following up with primary care return if worsening or concerns Lab Data Attestation: I reviewed the patient's lab results. Labs: Laboratory Results - last 24 hr 05/17/21 05/17/21 05/17/21 18:05 18:05 18:05 WBC 9.0 RBC 5.03 Hgb 13.9 Hct 39.9 MCV 79.3 L MCH 27.6 MCHC 34.8 RDW Std Deviation 41.2 RDW Coeff of Arnoldo 14.4 Plt Count 342 MPV 10.5 Immature Gran % (Auto) 0.300 Neut % (Auto) 79.2 H Lymph % (Auto) 14.6 L [place] % (Auto) 5.1 Eos % (Auto) 0.2 Baso % (Auto) 0.6 Absolute Neuts (auto) 7.1 Absolute Lymphs (auto) 1.32 Nucleated RBC % 0 D-Dimer Quant (PE/DVT) 0.43 Sodium 140 Potassium 3.5 Chloride 109 H Carbon Dioxide 25.0 Anion Gap 6 BUN 13 Creatinine 0.79 Estim Creat Clear Calc 83.08 Est GFR (MDRD) Af Amer 97 Est GFR (MDRD) Non-Af 80 BUN/Creatinine Ratio 16.4 Glucose 114 H Calcium 9.4 Troponin I High Sens 20 Radiography Diagnostic Testing: Clinical Impression(s) from Imaging Studies Chest X-Ray 05/17/21 18:48 IMPRESSION: No radiographic evidence of acute cardiopulmonary disease. No interval change. at 1913 Reported and signed by: Kumar Kelly MD Electronically Signed: Kumar Kelly MD at 19:12 EST , EKG Initial EKG: Attestation: I personally reviewed and interpreted this EKG as follows: Comments: Normal sinus rhythm with a ventricular rate of 83 bpm. Discharge Plan Triage Chief Complaint: Chest Pain ED Provider: Hima West Dx/Rx/DC Orders Clinical Impression: Chest pain Instructions: ED Chest Pain, Uncertain Cause Primary Care Provider: Care Physician,No Primary Referrals: Care Physician,No Primary [Primary Care Provider] - Disposition Disposition: Home, Self Care
[2021-05-17] MEDS: Aspirin 81 MG TAB.CHEW 324 MG PO (18:44)
--- NOTE | 2021-05-17 18:48 | RAD_ITS ---
History: chest pain EXAMINATION/TECHNIQUE: XR Chest 1 View: Portable COMPARISON: 06/07/2019 FINDINGS: LINES/DEVICES: None. LUNGS: No consolidation, edema or effusion. No pneumothorax. MEDIASTINUM AND CARDIOVASCULAR STRUCTURES: Cardiac silhouette not enlarged. Central airways and mediastinal contour are unremarkable. BONES AND SOFT TISSUES: Unremarkable. RAD/Chest 1 View (Portable) IMPRESSION: No radiographic evidence of acute cardiopulmonary disease. No interval change. at 1913 Reported and signed by: Kumar Kelly MD Electronically Signed: Kumar Kelly MD at 19:12 EST ,
[2021-05-17 18:56] LABS: Absolute Lymphocyte Count 1.32 X10^3/uL (0.83-4.51); Absolute Neutrophil Count 7.1 X10^3/uL (2.0-7.7); Basophil# 0.05 X10^3/uL; Basophil% 0.6 % (0-1); Eosinophil# 0.02 X10^3/uL; Eosinophils% 0.2 % (0-5); Hematocrit 39.9 % (37-47); Hemoglobin 13.9 g/dL (12.0-15.0); Lymphocyte # 1.32 X10^3/ul (0.83-4.51); Lymphocyte % 14.6 % (19-41); Mean Corp Hgb Conc 34.8 g/dL (32-36); Mean Corpuscular Hgb 27.6 pg (27.0-32.0); Mean Corpuscular Volume 79.3 fL (81-99); Mean Platelet Vol. 10.5 fl (6.2-12.0); Monocyte# 0.46 X10^3/uL; Monocyte% 5.1 % (0-10); NRBC Flagged by Analyzer 0 % (0-5); Neutrophil # 7.14 X10^3/uL (2.7-7.7); Neutrophil % 79.2 % (47-70); Platelet Count 342 K/mm3 (150-450); RBC Distribution Width CV 14.4 % (11.6-14.6); RBC Distribution Width SD 41.2 fl (35.1-43.9); Red Blood Count 5.03 M/mm3 (4.2-5.4)
[2021-05-17 19:09] LABS: Anion Gap 6 (5-15); BUN 13 mg/dL (7-18); BUN/Creat Ratio 16.4 RATIO (10-20); Calcium,Total 9.4 mg/dL (8.5-10.1); Chloride 109 mmol/L (98-107); Creatinine, Serum 0.79 mg/dL (0.55-1.02); EST Glomerular Filtration Rate 80 mL/min (>60); Est Glom Filt Rate - Afr Amer 97 mL/min (>60); Estimated Creatinine Clearance 83.08 ml/min; Glucose 114 mg/dL (74-106); Potassium 3.5 mmol/L (3.5-5.1); Sodium Level 140 mmol/L (136-145); Troponin-I HS 20 pg/mL (3.0-54.0)
[2021-05-17 19:27] LABS: D-Dimer Quantitative (DVT/PE) 0.43 FEU/ug/m (0.27-0.49)
[2021-05-17 19:28] VITALS: BP 142/81; PULSE 72; RESP 17; O2SAT 97
[2021-05-17 20:18] VITALS: BP 135/73; PULSE 69; RESP 16; O2SAT 99
[2021-05-17 20:32] VITALS: BP 135/73; PULSE 78; RESP 16; O2SAT 97
== END 2021-05-17 20:33 | disposition home or self-care (01) ==
PROVIDERS: Emergency Provider Emergency Medicine; Visit Provider Emergency Medicine
DX: R07.9 Chest pain, unspecified (principal); F17.210 Nicotine dependence, cigarettes, uncomplicated; F17.290 Nicotine dependence, other tobacco product, uncomplicated; F12.90 Cannabis use, unspecified, uncomplicated
CPT/HCPCS: 71045; 80048; 84484; 85025; 85379; 93005; 99285; A4216

== ENCOUNTER 2022-09-28 16:07 | Emergency (ER) | payer SELFPAY ==
[2022-09-28 16:08] VITALS: BP 138/92; PULSE 65; RESP 14; TEMP 36.6; O2SAT 98; BMI 38.1
--- NOTE | 2022-09-28 16:20 | EDS_ITS ---
HPI History of Present Illness Chief Complaint: Chest Pain Detail of Chief Complaint: Chest pain Informant: patient Narrative Narrative: Patient presents with chest pain that started around noon today. Patient states that she was at her job moving some things around and watering some hughes and developed some discomfort initially just right of her spine in her mid back, radiates around the right side of her back. She then subsequently developed pain in the center of her chest radiating towards her left nipple. She states that she laid down for about 3 hours and the discomfort seemed to ease but it would come in waves and at times would radiate up her neck and she got very nauseated with it. She felt slightly short of breath. She describes a pressure type discomfort and tightness. Patient has significant family history of heart disease and that her father at age 51 had an [place] and her brother is in his 40s and has had several MIs. Patient is a smoker. She denies recent travel or surgery. Denies other medical history. PFSH PFSH Allergy/AdvReac Type Severity Reaction Status Date / Time cinnamon Allergy Anaphylaxis Verified 09/28/22 16:08 Social History (Updated 05/17/21 @ 18:[address] Hima West, ) Smoking Status: Current every day smoker tobacco type: cigarettes and e- cigarettes substance use type: marijuana ROS ROS ED Review of Systems ROS Unobtainable: other Constitutional Constitutional ED: Reports lethargy; Denies chills, fever(s), sweats or weight loss Eyes Eyes: Denies blurry vision, change in vision or diplopia ENT ENT ED: Denies rhinorrhea or sore throat Cardiovascular Cardiovascular: Reports chest pain; Denies orthopnea or racing heartbeat Respiratory/Chest Respiratory/Chest: Reports dyspnea; Denies cough, dyspnea on exertion, orthopnea or sputum Gastrointestinal Gastrointestinal: Reports nausea; Denies abdominal pain, diarrhea or vomiting Genitourinary Genitourinary ED: Denies dysuria, hematuria or urinary frequency Musculoskeletal Musculoskeletal: Denies arthralgias, back pain, myalgias or neck pain Integumentary Denies abscess, Abrasions or rash Neurologic Neurologic: Denies headache(s) or weakness Psychiatric Psychiatric: Denies anxiety, depression or suicidal thoughts Endocrine Endocrinology: Denies polydipsia, polyphagia or polyuria Hematologic/Lymphatic Hematologic/Lymphatic: Denies easy bleeding, easy bruising or lymphadenopathy Allergic/Immunologic Allergic/Immunologic ED: Denies mouth swelling, tongue swelling or urticaria EXAM Physical Exam Const Vital Signs: 09/28/22 16:08 09/28/22 16:17 Temperature 98 F Temperature Source Temporal Pulse Rate 65 Respiratory Rate 14 Respiratory Effort Normal Non-Labored Blood Pressure 138/92 H Blood Pressure Mean 107 Pulse Ox 98 Oxygen Delivery Method Room Air Positive well nourished and well developed General Appearance ED: well developed and NAD HEENT Reports TM's clear and moist mucous membranes normocephalic and atraumatic; Negative for trauma or tenderness Tympanic Membrane ED: Yes TM's clear Eyes PERRL and EOMs intact bilaterally General Eye ED: Negative for pale conjunctiva or scleral icterus Neck no lymphadenopathy, supple and no JVD General: Negative for tenderness Chest Wall inspection of chest normal and palpation of chest normal Chest: Negative for tenderness Resp normal respiratory effort and clear to auscultation bilaterally Effort and Inspection: Negative for respiratory distress or pain with movement Auscultation: Negative for rhonchi, wheezes or diminished lung sounds Cardio regular rate, regular rhythm, S1 normal heart sound, S2 normal heart sound and no murmurs Peripheral Pulses: pulses 2+ throughout GI normal to inspection, nondistended, normoactive bowel sounds, soft to palpation, non-tender, non-distended and no masses Back/Spine no CVA tenderness and no thoracic nor lumbar tenderness Extremity normal to inspection General Extremety ED: Negative for edema General Extremity: Negative for edema Neuro oriented x3, CN's II-XII intact bilaterally, no sensory deficits noted and gait normal Sensorium / Orientation: awake, alert, oriented to person, oriented to place and oriented to time Motor Exam: strength 5/5 throughout and strength abnormal Psych mental status grossly normal Skin no rashes or lesions noted and no wounds Heart Score History: Slightly/Non-Suspicious ECG: Normal Age: >45 - <65 years Risk Factors: 1 or 2 Risk Factors Troponin: </= Normal Limit Score: 2 MDM MDM MDM Narrative Medical decision making narrative: Presents with pain in her back and chest that she has had since noon. In the differential would be PE versus acute coronary syndrome versus musculoskeletal etiology. On arrival pain mostly resolved she just describes minimal discomfort maybe a 1 out of 10. Patient received aspirin on arrival. IV line established. Patient placed on a secured entrance monitor. EKG obtained showed sinus rhythm with a ventricular rate of 63 bpm with no acute ST segment changes. CBC with differential was unremarkable. D-dimer was normal at 0.40. Chemistries unremarkable. Troponin was normal at 6. 2-hour delta troponin also normal at 8. Patient for time stated that her pain had completely resolved but then just has some minimal discomfort in the anterior aspect of the chest currently. Otherwise she feels well. I feel she can be safely discharged to home. Her heart score is a 2. I do not think she is having acute coronary syndrome. We ruled out PE. Chest x-ray was unremarkable rule out pneumothorax or other acute process. Lab Data Attestation: I reviewed the patient's lab results. Labs: Laboratory Results - last 24 hr 09/28/22 09/28/22 09/28/22 16:24 16:24 16:24 WBC 9.0 RBC 4.70 Hgb 13.0 Hct 40.4 MCV 86.0 MCH 27.7 MCHC 32.2 RDW Std Deviation 40.0 RDW Coeff of Arnoldo 12.9 Plt Count 260 MPV 10.1 Immature Gran % (Auto) 0.400 Neut % (Auto) 71.9 H Lymph % (Auto) 21.7 Crockett % (Auto) 5.1 Eos % (Auto) 0.3 Baso % (Auto) 0.6 Absolute Neuts (auto) 6.5 Absolute Lymphs (auto) 1.95 Nucleated RBC % 0 D-Dimer Quant (PE/DVT) 0.40 Sodium 140 Potassium 3.6 Chloride 108 H Carbon Dioxide 25.0 Anion Gap 7 BUN 12 Creatinine 0.71 Estim Creat Clear Calc 90.31 Est GFR (MDRD) Af Amer 110 Est GFR (MDRD) Non-Af 91 BUN/Creatinine Ratio 16.9 Glucose 142 H Calcium 9.2 Troponin I High Sens 6 09/28/22 18:32 WBC RBC Hgb Hct MCV MCH MCHC RDW Std Deviation RDW Coeff of Arnoldo Plt Count MPV Immature Gran % (Auto) Neut % (Auto) Lymph % (Auto) Crockett % (Auto) Eos % (Auto) Baso % (Auto) Absolute Neuts (auto) Absolute Lymphs (auto) Nucleated RBC % D-Dimer Quant (PE/DVT) Sodium Potassium Chloride Carbon Dioxide Anion Gap BUN Creatinine Estim Creat Clear Calc Est GFR (MDRD) Af Amer Est GFR (MDRD) Non-Af BUN/Creatinine Ratio Glucose Calcium Troponin I High Sens 8 Radiography Chest X-Ray - ED: 1 View Diagnostic Testing: Clinical Impression(s) from Imaging Studies Chest X-Ray 09/28/22 16:25 IMPRESSION: No radiographic evidence of acute cardiopulmonary disease. Electronically Signed: Kurt Rendon DO at 16:39 EDT Reading Location ID and State: [address] [place] [address] Tel [phone], Service support , 1 view chest x-ray obtained interpreted by myself as no evidence of infiltrate or pneumothorax or acute disease process. Radiology in agreement. EKG Initial EKG: Attestation: I personally reviewed and interpreted this EKG as follows: Comments: Sinus rhythm with a ventricular rate of 63 bpm with no acute ST segment changes Discharge Plan Triage Chief Complaint: Chest Pain ED Provider: Walter Nieves Dx/Rx/DC Orders Clinical Impression: Chest pain Instructions: ED Chest Pain, Uncertain Cause Primary Care Provider: Care Physician,No Primary Referrals: Sanford Bullock MD [Med Staff - [employer]] - 3-5 Days Care Physician,No Primary [Primary Care Provider] - Disposition Disposition: Home, Self Care
--- NOTE | 2022-09-28 16:25 | RAD_ITS ---
INDICATION: chest pain EXAMINATION/TECHNIQUE: X-RAY - XR Chest 1 View COMPARISON: FINDINGS: LINES/DEVICES: None. LUNGS: No consolidation, edema or effusion. No pneumothorax. MEDIASTINUM AND CARDIOVASCULAR STRUCTURES: Cardiac silhouette not enlarged. Central airways and mediastinal contour are unremarkable. BONES AND SOFT TISSUES: Unremarkable. RAD/Chest 1 View (Portable) IMPRESSION: No radiographic evidence of acute cardiopulmonary disease. Electronically Signed: Kurt Rendon DO at 16:39 EDT ,
[2022-09-28 16:32] LABS: Absolute Lymphocyte Count 1.95 X10^3/uL (0.83-4.51); Absolute Neutrophil Count 6.5 X10^3/uL (2.0-7.7); Basophil# 0.05 X10^3/uL; Basophil% 0.6 % (0-1); Eosinophil# 0.03 X10^3/uL; Eosinophils% 0.3 % (0-5); Hematocrit 40.4 % (37-47); Lymphocyte # 1.95 X10^3/ul (0.83-4.51); Lymphocyte % 21.7 % (19-41); Mean Corp Hgb Conc 32.2 g/dL (32-36); Mean Corpuscular Hgb 27.7 pg (27.0-32.0); Mean Platelet Vol. 10.1 fl (6.2-12.0); Monocyte# 0.46 X10^3/uL; Monocyte% 5.1 % (0-10); NRBC Flagged by Analyzer 0 % (0-5); Neutrophil # 6.46 X10^3/uL (2.7-7.7); Neutrophil % 71.9 % (47-70); Platelet Count 260 K/mm3 (150-450); RBC Distribution Width CV 12.9 % (11.6-14.6)
[2022-09-28] MEDS: Aspirin 81 MG TAB.CHEW 324 MG PO (16:56)
[2022-09-28] MEDS: 0.9% Normal Saline 1,000 ML 150 ML IV (16:56)
[2022-09-28 17:00] LABS: Anion Gap 7 (5-15); BUN 12 mg/dL (7-18); BUN/Creat Ratio 16.9 RATIO (10-20); Calcium,Total 9.2 mg/dL (8.5-10.1); Chloride 108 mmol/L (98-107); Creatinine, Serum 0.71 mg/dL (0.55-1.02); EST Glomerular Filtration Rate 91 mL/min (>60); Est Glom Filt Rate - Afr Amer 110 mL/min (>60); Estimated Creatinine Clearance 90.31 ml/min; Glucose 142 mg/dL (74-106); Potassium 3.6 mmol/L (3.5-5.1); Sodium Level 140 mmol/L (136-145); Troponin-I HS (w/2H Reflex) 6 pg/mL (3.0-54.0)
[2022-09-28 18:27] LABS: Reflex Troponin-HS? (from REC) Y
[2022-09-28 19:03] LABS: Troponin-I HS 8 pg/mL (3.0-54.0)
== END 2022-09-28 19:13 | disposition home or self-care (01) ==
PROVIDERS: Emergency Provider Emergency Medicine; Visit Provider Emergency Medicine
DX: R07.9 Chest pain, unspecified (principal); F17.210 Nicotine dependence, cigarettes, uncomplicated; F12.90 Cannabis use, unspecified, uncomplicated
CPT/HCPCS: 71045; 80048; 84484; 85025; 85379; 93005; 99284; J7030; A4216

== ENCOUNTER 2022-12-23 12:09 | Emergency (ER) | payer SELFPAY ==
[2022-12-23 12:09] VITALS: BP 149/77; PULSE 66; RESP 18; TEMP 36; O2SAT 97; BMI 37.0
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
[2022-12-23 13:51] VITALS: RESP 14
== END 2022-12-23 13:52 | disposition home or self-care (01) ==
PROVIDERS: Emergency Provider Emergency Medicine; Visit Provider Emergency Medicine
DX: M54.2 Cervicalgia (principal); F17.210 Nicotine dependence, cigarettes, uncomplicated; F12.90 Cannabis use, unspecified, uncomplicated; V49.88XA Car occupant (driver) (passenger) injured in other specified transport accidents, initial encounter
CPT/HCPCS: 99282

== ENCOUNTER 2023-10-06 12:41 | Emergency (ER) | payer SELFPAY ==
[2023-10-06 12:41] VITALS: BP 201/74; PULSE 61; RESP 18; TEMP 36.4; O2SAT 100; BMI 37.8
--- NOTE | 2023-10-06 13:29 | CT_ITS ---
STUDY: CT BRAIN WITHOUT CONTRAST REASON FOR EXAM: Female, 58 years old. Dizziness RADIATION DOSAGE (If Supplied By Facility): CTDIvol = ( 44.99 ) mGy, DLP = ( 779.24 ) mGycm TECHNIQUE: Transaxial CT imaging of the brain was performed without administration of intravenous contrast material. Individualized dose optimization techniques were used for this CT. COMPARISON: July 19, 2016 FINDINGS: Normal soft tissue structures. Normal calvarium. Normal size ventricles and extra-axial spaces for the patient''s age. Normal white matter tracts of the cerebral hemispheres. Normal basal ganglia and thalami. Normal brainstem. Normal cerebellum. There is no intracranial hemorrhage. There are no findings of an acute ischemic infarction. Normal visualized paranasal sinuses. CT/Brain/Head without Contrast IMPRESSION: Normal unenhanced CT scan of the brain. Electronically Signed: Arden Raphael MD at 14:29 EDT ,
--- NOTE | 2023-10-06 13:29 | EKG12_ITS ---
Test Reason : DIZZINESS Blood Pressure : / mmHG Vent. Rate : 054 BPM Atrial Rate : 054 BPM P-R Int : 192 ms QRS Dur : 084 ms QT Int : 424 ms P-R-T Axes : 058 019 058 degrees QTc Int : 402 ms Sinus bradycardia with sinus arrhythmia Otherwise normal ECG Confirmed by Brian Pearson ([id number]), story editor LIDIA HARPER ([id number]) on 10/09/2023 8:13:01 AM Referred By: Confirmed By:Brian Pearson
[2023-10-06 13:30] VITALS: BP 188/151; PULSE 59; RESP 15; O2SAT 99
--- NOTE | 2023-10-06 13:31 | EX.ED.DYSGE1 ---
HPI <FENG Moura - Last Filed: 10/06/23 15:39> History of Present Illness Chief Complaint: Dizziness Narrative Narrative: Patient is a 58-year-old female with no significant medical history does not see a PCP, patient does smoke 6 cigarettes/week however she does smoke marijuana daily. Presenting to the emergency department after having a dizzy/headache, nausea and vomiting with some chest pain episode. Patient that she was at work when she started not feeling well. States she got sweaty, became dizzy which she describes a room spinning, had some vomiting, notes and tingling down both arms, as well as some chest discomfort. Patient denies any recent travel, patient denies any significant shortness of breath. PFSH <FENG Moura - Last Filed: 10/06/23 15:39> PFSH Medical History (Updated 10/06/23 @ 17:[address] Mane Mcghee MD) Carpal tunnel syndrome of left wrist Home Medications ?Medication ?Instructions ?Recorded ?Last Taken ?Type methocarbamol 500 mg tablet 500 mg PO Q8H PRN muscle pain #10 12/23/22 Unknown Rx tabs ondansetron 4 mg disintegrating 4 mg PO Q8H PRN PRN Nausea #10 tabs 10/06/23 Unknown Rx tablet Allergy/AdvReac Type Severity Reaction Status Date / Time cinnamon Allergy Anaphylaxis Verified 10/06/23 12:43 Surgical History H/O tubal ligation Social History (Updated 05/17/21 @ 18:[address] Hima West, DO) Smoking Status: Current every day smoker tobacco type: cigarettes substance use type: marijuana ROS <FENG Moura - Last Filed: 10/06/23 15:39> ROS ED ROS Narrative Constitutional: Negative for fever, chills, weight loss, weakness Eyes: Negative for vision loss, vision change, double vision ENT: Negative for any sore throat, ear pain, congestion Cardiovascular: Negative for any chest pain, palpitations. Positive chest tightness Respiratory: Negative for any cough, sputum production, hemoptysis, dyspnea, dyspnea on exertion, orthopnea Gastrointestinal: Negative for any abdominal pain, diarrhea, constipation, blood in stool, blood in vomit. Nausea and vomiting : Negative for any urinary frequency, dysuria, retention, blood in urine Muscle skeletal: Negative for any neck pain, back pain Neurological: Negative for any headache, syncope. Positive feeling of dizziness, room spinning sensation Skin: Negative for any rashes, itching, abrasions, lacerations Psychiatric: Negative for any depression, anxiety, stress, suicidal ideation, homicidal ideation Hematologic: Negative for any excessive bruising, easy bleeding EXAM <FENG Moura - Last Filed: 10/06/23 15:39> Physical Exam Narrative Exam Narrative: Vital signs reviewed. HEET: Head normocephalic atraumatic, TMs clear bilaterally. Posterior pharynx is clear, moist mucous membranes. Nares clear bilaterally. Neck: Supple with no lymphadenopathy or tenderness. No signs of meningismus. Cardiac: Regular rate and rhythm no murmurs gallops or rubs, equal peripheral pulses bilaterally. Respiratory: Lungs clear to auscultation bilaterally. No chest tenderness. Abdomen: Soft, nontender, nondistended. No abdominal bruit or pulsatile masses. No hepatosplenomegaly Extremities: No peripheral edema, no signs of gross trauma or deformity. Active full range of motion of all extremities. Neuro: Cranial nerves II through XII intact, no focal neurological deficits. Brigitte-Hallpike maneuver exhibited horizontal nystagmus bilateral worse to the left than the right. Denies stroke scale 0 Skin: Clean dry and intact with no rash, purpura, petechiae, vesicles or pustules. Backs/flank: No CVA tenderness, no midline spinal tenderness, no deformity. Psych: Normal mood and affect. No SI, HI or acute psychosis. Const Vital Signs: 10/06/23 12:41 10/06/23 13:30 10/06/23 13:56 Temperature 97.6 F L Temperature Source Temporal Pulse Rate 61 59 L Respiratory Rate 18 15 Blood Pressure 201/74 H 188/151 H Blood Pressure Mean 116 165 Pulse Ox 100 99 Oxygen Delivery Method Room Air Room Air 10/06/23 14:00 10/06/23 15:00 10/06/23 15:53 Temperature 97.6 F L Temperature Source Pulse Rate 58 L 61 58 L Respiratory Rate 9 L 14 16 Blood Pressure 157/66 H 152/72 H Blood Pressure Mean 88 98 Pulse Ox 98 98 Oxygen Delivery Method Positive well nourished and well developed General Appearance ED: well developed <Dr. Mane Mcghee MD - Last Filed: 10/06/23 17:44> Physical Exam Const Vital Signs: 10/06/23 12:41 10/06/23 13:30 10/06/23 13:56 Temperature 97.6 F L Temperature Source Temporal Pulse Rate 61 59 L Respiratory Rate 18 15 Blood Pressure 201/74 H 188/151 H Blood Pressure Mean 116 165 Pulse Ox 100 99 Oxygen Delivery Method Room Air Room Air 10/06/23 14:00 10/06/23 15:00 10/06/23 15:53 Temperature 97.6 F L Temperature Source Pulse Rate 58 L 61 58 L Respiratory Rate 9 L 14 16 Blood Pressure 157/66 H 152/72 H Blood Pressure Mean 88 98 Pulse Ox 98 98 Oxygen Delivery Method MDM <FENG Moura - Last Filed: 10/06/23 15:39> MDM Lab Data Labs: Laboratory Results - last 24 hr 10/06/23 13:35 WBC 10.1 RBC 5.08 Hgb 14.8 Hct 43.4 MCV 85.4 MCH 29.1 MCHC 34.1 RDW Std Deviation 39.8 RDW Coeff of Arnoldo 12.8 Plt Count 239 MPV 10.4 Immature Gran % (Auto) 0.400 Neut % (Auto) 84.0 H Lymph % (Auto) 11.5 L [place] % (Auto) 3.6 Eos % (Auto) 0.1 Baso % (Auto) 0.4 Absolute Neuts (auto) 8.5 H Absolute Lymphs (auto) 1.16 Nucleated RBC % 0 Sodium 138 Potassium 3.9 Chloride 106 Carbon Dioxide 28.0 Anion Gap 4 L BUN 15 Creatinine 0.70 Estim Creat Clear Calc 118.37 Est GFR (MDRD) Af Amer 112 Est GFR (MDRD) Non-Af 92 BUN/Creatinine Ratio 21.5 H Glucose 108 H Calcium 9.2 Troponin I High Sens 6 TSH 1.70 Radiography Diagnostic Testing: Clinical Impression(s) from Imaging Studies Brain CT 10/06/23 13:29 IMPRESSION: Normal unenhanced CT scan of the brain. Electronically Signed: Arden Raphael MD at 14:29 EDT , Chest X-Ray 10/06/23 14:48 IMPRESSION: Normal x-ray examination of the chest. Electronically Signed: Arden Raphael MD at 15:54 EDT , EKG Sinus bradycardia: Attestation: I personally reviewed and interpreted this EKG as follows: Interpretation: Sinus Rhythm Comments: Sinus bradycardia, 54 bpm, NM interval 192 ms, QRS duration 84 ms, no acute ST elevation, no acute infarct noted. Treatment and Re-Evaluation :: Differential diagnosis includes however is not limited to: Benign positional peripheral vertigo, CVA, ACS, MO, viral syndrome Patient appears to be in no obvious distress vital signs are stable. Patient is nontoxic-appearing. Presenting to the emergency department for a dizzy spell which she describes as room spinning, unsteadiness. She also had some shortness of breath, slight chest pressure. Patient received a full neurological as well as cardiopulmonary exam. Patient received a CT scan of the brain, chest x-ray, as well as laboratory values including 2 troponins. Patient received Tylenol, meclizine as well as IV fluids and Zofran. Patient be reevaluated. Patient's CT scan of the brain shows no acute process. Chest x-ray was normal. Laboratory values showed a normal CBC, chemistries were unremarkable, troponin was 6 which is negative. TSH was within normal limits. Patient after IV fluids, Zofran as well as Antivert, patient felt much better. Patient was able to ambulate, steady gait, at this time, is no evidence of any central cause of vertigo, there is no evidence of any ACS or MO. I do believe the patient stable for discharge. She will be provided with a family doctor. She instructed return for any worsening symptoms, patient stable for discharge. <Dr. Mane Mcghee MD - Last Filed: 10/06/23 17:44> [facility] Narrative Medical decision making narrative: I have personally performed a face to face assessment of the patient and have reviewed the KENNEDY Note. I performed a substantive portion of the visit including all aspects of the following. My daley findings include: History is remarkable for dizziness. The dizziness was positional. Patient was asked to define what she means by dizziness. She stated it was sensation of lightheadedness and spinning sensation. There was no associated double vision, blurred vision loss of vision. She denies trouble with speech or swallowing. She denied paresthesia, anesthesia or motor weakness. She denied recent head trauma. She did have episode of nausea and vomiting after having the nausea and vomiting she developed a tingling sensation left side of her chest with radiation to her left arm. There is no other associated symptoms. Patient denies history of VTE. Patient apparently does not have history of hypertension. Her initial blood pressure was elevated at 201/74. She denies leg pain, swelling discoloration Exam is remarkable for elevated blood pressure. Initial blood pressure 201/70 4 repeat 157/66. HEENT exam is unremarkable. Pupils are equal round reactive. Extract muscle intact. Sclera is anicteric. There is no nystagmus with central gaze. External auditory canals are clean. Heart is regular. Rate is normal. There is no murmur, gallop or rub. Lungs are clear to auscultation with symmetric breath sounds. There is no asymmetry, swelling, discoloration, leg vein distention, palpable cords or tenderness along the distribution of the deep venous system. Patient is alert orient x 3. Cranials 2 through 12 are intact. Motor or sensory intact. There is no clonus or Babinski. There is no dysmetria. Romberg with eyes open and close negative. The eye askew test and hints test were both negative. Oldhams-Hallpike maneuver was positive with her head to the left with find nystagmus noted with fast component to the right. She states her symptoms are much less at this time. Gait was observed and is normal. Tandem gait was observed and is normal. From a historical standpoint her dizziness got better when she closed her eyes. Patient initially seen by nurse practitioner who workup her chest pain for cardiac and obtain CT because she is never had 1 and she complained of headache. This was not a thunderclap headache. She denied photophobia. She denied neck pain or pain with movement of her neck. There is no family history of subarachnoid hemorrhage Medical Decision Making suspect patient's headache was due to the vomiting since occurred after the vomiting as did her chest pain. Workup included EKG blood work CAT scan. The CT of the head was reviewed by . There is no evidence of subarachnoid hemorrhage. Other additions or changes: Since patient's symptoms have improved she will not need treatment at this time for her vertigo, which in my opinion is paroxysmal benign positional vertigo. Unable to determine whether it is unilateral or bilateral. Lab Data Labs: Laboratory Results - last 24 hr 10/06/23 13:35 WBC 10.1 RBC 5.08 Hgb 14.8 Hct 43.4 MCV 85.4 MCH 29.1 MCHC 34.1 RDW Std Deviation 39.8 RDW Coeff of Arnoldo 12.8 Plt Count 239 MPV 10.4 Immature Gran % (Auto) 0.400 Neut % (Auto) 84.0 H Lymph % (Auto) 11.5 L [place] % (Auto) 3.6 Eos % (Auto) 0.1 Baso % (Auto) 0.4 Absolute Neuts (auto) 8.5 H Absolute Lymphs (auto) 1.16 Nucleated RBC % 0 Sodium 138 Potassium 3.9 Chloride 106 Carbon Dioxide 28.0 Anion Gap 4 L BUN 15 Creatinine 0.70 Estim Creat Clear Calc 118.37 Est GFR (MDRD) Af Amer 112 Est GFR (MDRD) Non-Af 92 BUN/Creatinine Ratio 21.5 H Glucose 108 H Calcium 9.2 Troponin I High Sens 6 TSH 1.70 Radiography Diagnostic Testing: Clinical Impression(s) from Imaging Studies Brain CT 10/06/23 13:29 IMPRESSION: Normal unenhanced CT scan of the brain. Electronically Signed: Arden Raphael MD at 14:29 EDT , Chest X-Ray 10/06/23 14:48 IMPRESSION: Normal x-ray examination of the chest. Electronically Signed: Arden Raphael MD at 15:54 EDT , Discharge Plan Triage Chief Complaint: Dizziness ED Midlevel Provider: Arvind Waldron ED Provider: Mane Mcghee Dx/Rx/DC Orders Clinical Impression: Vertigo, Nausea & vomiting, Chest pressure, Anxiety disorder, Acute headache Instructions: ED Chest Pain, Noncardiac, ED Vertigo, Unspecified, ED Vomiting (Adult) Prescriptions: New ondansetron 4 mg tablet,disintegrating 4 mg PO Q8H PRN PRN (Reason: Nausea) Qty: 10 0RF No Action methocarbamol 500 mg tablet 500 mg PO Q8H PRN (Reason: muscle pain) Qty: 10 0RF Primary Care Provider: Care Physician,No Primary Referrals: Arvind Alba MD [Med Staff - Active Staff] - Care Physician,No Primary [Primary Care Provider] - Activity Restrictions/Additional Instructions: Please follow-up with PCP. Return for any worsening dizziness, fever chills nausea vomiting. Print Language: Belarusian Disposition Disposition: Home, Self Care Discharge Date/Time: 10/06/23 15:55
[2023-10-06 13:50] LABS: Absolute Lymphocyte Count 1.16 X10^3/uL (0.83-4.51); Absolute Neutrophil Count 8.5 X10^3/uL (2.0-7.7); Basophil# 0.04 X10^3/uL; Basophil% 0.4 % (0-1); Eosinophil# 0.01 X10^3/uL; Eosinophils% 0.1 % (0-5); Hematocrit 43.4 % (37-47); Hemoglobin 14.8 g/dL (12.0-15.0); Lymphocyte # 1.16 X10^3/ul (0.83-4.51); Lymphocyte % 11.5 % (19-41); Mean Corp Hgb Conc 34.1 g/dL (32-36); Mean Corpuscular Hgb 29.1 pg (27.0-32.0); Mean Corpuscular Volume 85.4 fL (81-99); Mean Platelet Vol. 10.4 fl (6.2-12.0); Monocyte# 0.36 X10^3/uL; Monocyte% 3.6 % (0-10); NRBC Flagged by Analyzer 0 % (0-5); Neutrophil # 8.49 X10^3/uL (2.7-7.7); Platelet Count 239 K/mm3 (150-450); RBC Distribution Width CV 12.8 % (11.6-14.6); RBC Distribution Width SD 39.8 fl (35.1-43.9); Red Blood Count 5.08 M/mm3 (4.2-5.4); White Blood Count 10.1 K/mm3 (4.4-11.0)
[2023-10-06] MEDS: 0.9% Normal Saline (1000mL) 1,000 ML 999 ML IV (13:51)
[2023-10-06] MEDS: Meclizine HCl 25 MG Tablet PO (13:52)
[2023-10-06] MEDS: Ondansetron 4 MG/2 ML Vial IV (13:52)
[2023-10-06] MEDS: Acetaminophen 500 MG Tablet 1000 MG PO (13:52)
[2023-10-06 14:00] VITALS: PULSE 58; RESP 9; O2SAT 98
[2023-10-06 14:31] LABS: Anion Gap 4 (5-15); BUN 15 mg/dL (7-18); BUN/Creat Ratio 21.5 RATIO (10-20); Calcium,Total 9.2 mg/dL (8.5-10.1); Chloride 106 mmol/L (98-107); EST Glomerular Filtration Rate 92 mL/min (>60); Est Glom Filt Rate - Afr Amer 112 mL/min (>60); Estimated Creatinine Clearance 118.37 ml/min; Glucose 108 mg/dL (74-106); Potassium 3.9 mmol/L (3.5-5.1); Sodium Level 138 mmol/L (136-145); Troponin-I HS (w/2H Reflex) 6 pg/mL (3.0-54.0)
--- NOTE | 2023-10-06 14:48 | RAD_ITS ---
STUDY: X-RAY CHEST REASON FOR EXAM: Female, 58 years old. Chest pain TECHNIQUE: PA and lateral views of the chest. COMPARISON: September 28, 2022 FINDINGS: The lungs are clear and expanded. There is no demonstrated pleural abnormality. Normal size heart. Normal mediastinum and keith. Normal visualized pulmonary arteries. Normal visualized aortic arch and descending thoracic aorta. Normal visualized thoracic spine. Normal visualized ribs, clavicles, and shoulders. There is no demonstrated abnormality of the visualized soft tissue structures of the upper abdomen. RAD/Chest PA and Lateral IMPRESSION: Normal x-ray examination of the chest. Electronically Signed: Arden Raphael MD at 15:54 EDT ,
[2023-10-06 15:00] VITALS: BP 157/66; PULSE 61; RESP 14
[2023-10-06 15:45] LABS: Reflex Troponin-HS? (from REC) Y
[2023-10-06 15:53] VITALS: BP 152/72; PULSE 58; RESP 16; TEMP 36.4; O2SAT 98
== END 2023-10-06 15:55 | disposition home or self-care (01) ==
PROVIDERS: Nurse Practitioner; Emergency Provider Emergency Medicine; Visit Provider Emergency Medicine
DX: R42 Dizziness and giddiness (principal); R11.2 Nausea with vomiting, unspecified; R07.89 Other chest pain; F41.9 Anxiety disorder, unspecified; R51.9 Headache, unspecified; F17.210 Nicotine dependence, cigarettes, uncomplicated; F12.90 Cannabis use, unspecified, uncomplicated
CPT/HCPCS: 70450; 71046; 80048; 84443; 84484; 85025; 93005; 96361; 96374; 96376; 99284; J7030; A4216; J2405

== ENCOUNTER 2024-12-26 14:50 | Emergency (ER) | payer SELFPAY ==
[2024-12-26 14:52] VITALS: BP 191/88; PULSE 67; RESP 16; TEMP 36.9; O2SAT 99; BMI 38.5
--- NOTE | 2024-12-26 15:58 | EKG12_ITS ---
Test Reason : Blood Pressure : */* mmHG Vent. Rate : 60 BPM Atrial Rate : 60 BPM P-R Int : 178 ms QRS Dur : 80 ms QT Int : 408 ms P-R-T Axes : 70 17 58 degrees QTcB Int : 408 ms Normal sinus rhythm with sinus arrhythmia Normal ECG Confirmed by MONE PROCTOR, GREG ([id number]), state editor LIDIA HARPER ([id number]) on 12/27/2024 10:47:07 AM Referred By: Confirmed By: GREG SHORE MD
[2024-12-26 16:24] VITALS: BP 181/82
[2024-12-26 16:26] LABS: Mucous, Urine 0 SEEN /hpf (<or=2+)
--- NOTE | 2024-12-26 16:56 | EDS_ITS ---
HPI History of Present Illness Chief Complaint: Hypertension Detail of Chief Complaint: Elevated blood pressure Informant: patient Onset/Context/Timing Onset: Today (Today taken by nurse. Systolic was greater than 190 diastolic was greater than 90) Context: - (Unknown since she has not seen a doctor in greater than 2 years) Timing: Continuous Quality: Elevated blood pressure, Location: Cardiovascular Current Severity: Moderate Maximum Severity: Moderate Worsened by: Not relevant Relieved by: Nothing Associated Symptoms Associated Symptoms: Had a headache 1 week ago and has bifrontal head discomfort presently Narrative Narrative: Patient a 59-year-old woman. She has history of anxiety. She also has a history of drug abuse. She is present on no medication. She does not have a doctor. She presents because of elevated blood pressure reading. She denies double vision, blurred vision loss of vision. Denies ringing ears decreased hearing. She has trouble with speech or swallowing. She denies chest pressure, tightness or heaviness. Denies back pain. She denies shortness of breath, dyspnea on exertion, orthopnea or PND. She denies abdominal pain. Denies nausea or vomiting. She denies decreased or increased urine output. She denies swelling of her lower extremities. Prior similar symptoms: No Recent Illness/Hospitalization: No PFSH [facility] Medical History Carpal tunnel syndrome of left wrist Home Medications ?Medication ?Instructions ?Recorded ?Last Taken ?Type methocarbamol 500 mg tablet 500 mg PO Q8H PRN muscle p ain #10 12/23/22 Unknown Rx tabs ondansetron 4 mg disintegrating 4 mg PO Q8H PRN PRN Na usea #10 tabs 10/06/23 Unknown Rx tablet lisinopril 5 mg tablet 5 mg PO DAILY #30 tabs 12/26 Unknown Rx Allergy/AdvReac Type Severity Reaction Status Date / Time cinnamon Allergy Anaphylaxis Verified 12/26/24 14:53 Surgical History H/O tubal ligation Social History Smoking Status: Current every day smoker tobacco type: cigarettes substance use type: marijuana ROS ROS ED Constitutional Constitutional ED: Denies chills, fever(s), subjective or sweats Eyes Eyes: Denies blurry vision, change in vision or diplopia ENT ENT ED: Reports other Details: Also documented HPI narrative ; Denies ear pain, rhinorrhea or sore throat Cardiovascular Cardiovascular: Denies orthopnea, palpitations, paroxysmal nocturnal dyspnea or racing heartbeat Respiratory/Chest Respiratory/Chest: Denies dyspnea, dyspnea on exertion, orthopnea or paroxysmal nocturnal dyspnea Gastrointestinal Gastrointestinal: Denies abdominal pain, diarrhea, nausea or vomiting Musculoskeletal Musculoskeletal: Denies arthralgias or myalgias Integumentary Denies rash Neurologic Neurologic: Reports headache(s) and other Details: Further detailed HPI narrative ; Denies paresthesias or weakness Hematologic/Lymphatic Hematologic/Lymphatic: Reports systems reviewed and no addt'l complaints, except as documented EXAM Physical Exam Const Vital Signs: 12/26/24 14:52 12/26/24 16:15 12/26/24 16:24 Temperature 98.5 F Temperature Source Oral Pulse Rate 67 Respiratory Rate 16 Respiratory Pattern Normal Blood Pressure 191/88 H 181/82 H Blood Pressure Mean 122 115 Pulse Ox 99 Oxygen Delivery Method Room Air 12/26/24 18:16 Temperature Temperature Source Pulse Rate Respiratory Rate Respiratory Pattern Blood Pressure 189/79 H Blood Pressure Mean 115 Pulse Ox Oxygen Delivery Method Positive well nourished and well developed Constitutional Narrative: Blood pressure was elevated 191/88. Repeat is 181/82. General Appearance ED: well developed; Negative for pallor HEENT Reports moist mucous membranes HEENT Narrative: Head is atraumatic no cephalic. Ears normal. Nares patent. Uvula midline. No deviation of the tongue with protrusion. Eyes PERRL and EOMs intact bilaterally Eyes Narrative: Normal cup-to-disc ratio on funduscopic exam. Eyes were not dilated. Did not see the optic nerve margins well. In my opinion she does not have papilledema. General Eye ED: Negative for pale conjunctiva or scleral icterus Neck no lymphadenopathy, supple and no JVD Resp normal respiratory effort and clear to auscultation bilaterally Cardio regular rate, regular rhythm, S1 normal heart sound, S2 normal heart sound and no murmurs GI normal to inspection, nondistended, normoactive bowel sounds, non-tender, non- distended and no masses; Negative for hepatosplenomegaly Extremity normal to inspection General Extremety ED: Negative for edema General Extremity: Negative for edema Neuro oriented x3, CN's II-XII intact bilaterally and no sensory deficits noted Neuro Narrative: There is no dysmetria. Reflexes are 2+ at the brachioradialis, bicep, tricep, patella and ankle. Reflexes are symmetric. There is no clonus or Babinski sign noted either side. Sensorium / Orientation: alert Motor Exam: strength 5/5 throughout Psych mental status grossly normal Skin no rashes or lesions noted, no wounds and skin turgor normal General Skin Exam: Negative for jaundice or pallor MDM MDM MDM Narrative Medical decision making narrative: Patient with hypertension. Her headache may be due to her blood pressure. At this point not concerned this is an intracranial bleed. Will obtain EKG to assess for LVH. BMP and UA to assess for any endorgan dysfunction. If there is no anion dysfunction will start patient on antihypertensive meds and refer to [facility] clinic since she does not have health insurance. History & Record Review Additional record(s) reviewed:: Prior ED visit (Most recent ER visit was October 06, 2023 for acute headache and dizziness. She was seen by Dr. West.) and Prior labs Lab Data Attestation: I reviewed the patient's lab results. Lab results narrative: Basic metabolic panel is unremarkable. Glucose is 109 with a normal CO2 anion gap. Urinalysis reveals trace proteins. Otherwise negative Labs: Laboratory Results - last 24 hr 12/26/24 12/26/24 16:10 16:20 Sodium 141 Potassium 3.9 Chloride 105 Carbon Dioxide 25.1 Anion Gap 11 BUN 11 Creatinine 0.59 L Estim Creat Clear Calc 140.09 Est GFR (MDRD) Non-Af 105 BUN/Creatinine Ratio 18.9 Glucose 109 H Calcium 9.3 Urine Color Straw Urine Clarity Clear Urine pH 6.5 Ur Specific [place] 1.010 Urine Protein 15 H Urine Glucose (UA) Normal Urine Ketones Negative Urine Occult Blood Negative Urine Nitrite Negative Urine Bilirubin Negative Urine Urobilinogen Normal Ur Leukocyte Esterase Negative Urine RBC 0-5 SEEN Urine WBC 0-5 SEEN Ur Squamous Epith Cells 0-5 SEEN Urine Bacteria 0 SEEN Urine Mucus 0 SEEN Treatment and Re-Evaluation :: Patient received first dose of lisinopril in the emergency department. She was referred to start metabolic clinic since she does not have a physician and she is uninsured. She was prescribed lisinopril 5 mg. She was instructed to follow-up in 1 to 2 weeks to have her blood pressure rechecked. Discharge Plan Triage Chief Complaint: Hypertension ED Provider: Mane Mcghee Dx/Rx/DC Orders Clinical Impression: Hypertensive urgency, Proteinuria, Adult BMI 38.0-38.9 kg/sq m Instructions: ED High Blood Pressure New Begin Tx Prescriptions: New lisinopril 5 mg tablet 5 mg PO DAILY Qty: 30 0RF No Action methocarbamol 500 mg tablet 500 mg PO Q8H PRN (Reason: muscle pain) Qty: 10 0RF ondansetron 4 mg tablet,disintegrating 4 mg PO Q8H PRN PRN (Reason: Nausea) Qty: 10 0RF Primary Care Provider: Care Physician,No Primary Referrals: Care Physician,No Primary [Primary Care Provider, Medical] [facility] [Non-Staff, Medical] - 1-2 Weeks Activity Restrictions/Additional Instructions: Called the [facility] for follow-up appointment 1 to 2 weeks. Take blood pressure medicine as prescribed. Print Language: Indonesian Disposition Disposition: Home, Self Care
[2024-12-26 16:58] LABS: Anion Gap 11 (5-15); BUN 11 mg/dL (4-19); BUN/Creat Ratio 18.9 RATIO (10-20); Calcium,Total 9.3 mg/dL (7.6-11.0); Carbon Dioxide 25.1 mmol/L (21.0-32.0); Chloride 105 mmol/L (98-108); Estimated Creatinine Clearance 140.09 ml/min (50-250); Glucose 109 mg/dL (70-99); Potassium 3.9 mmol/L (3.3-5.1)
[2024-12-26 17:13] LABS: Color, Urine Straw (Yellow); Glucose, Dipstick Normal (Normal); Ketone-Dipstick Negative (Negative); Leukocyte Esterase-Dipstick Negative /ul (Negative); Nitrite-Dipstick Negative (Negative); Occult Blood-Urine Negative /ul (Negative); Protein-Dipstick 15 mg/dl (Negative); Specific Gravity, Urine 1.010 (1.002-1.030); Urine Bilirubin Dipstick Negative (Negative)
[2024-12-26 18:16] VITALS: BP 189/79
[2024-12-26 18:17] LABS: Red Blood Cells-Urine 0-5 SEEN /hpf (0-5); Squamous Epithelial Cells - UA 0-5 SEEN /hpf (5-10)
== END 2024-12-26 18:49 | disposition home or self-care (01) ==
PROVIDERS: Emergency Provider Emergency Medicine; Visit Provider Emergency Medicine
DX: I16.0 Hypertensive urgency (principal); R80.9 Proteinuria, unspecified; I10 Essential (primary) hypertension; F41.9 Anxiety disorder, unspecified; Z79.899 Other long term (current) drug therapy; F17.210 Nicotine dependence, cigarettes, uncomplicated
CPT/HCPCS: 80048; 81001; 93005; 99285; A4216